=== PATIENT | male | born 1955 | race Caucasian/White ===

== ENCOUNTER 2018-03-28 06:15 | Day surgery (SDC) | payer OTHER ==
[2018-03-28] MEDS: SOD CHLORIDE 0.9% 1,000 ML IV (06:43)
[2018-03-28] MEDS ORDERED: LIDOCAINE 4% (MPF) 5 ML INJ (06:44)
[2018-03-28] MEDS: MOXIFLOXACIN 0.5% 3 ML OPH OPER (06:44)
[2018-03-28] MEDS: CYCLOPENTOLATE/PHENYLEPH 2 ML OPH OPER (06:44)
[2018-03-28] MEDS: DICLOFENAC 0.1% 2.5 ML OPH OPER (06:44)
[2018-03-28] MEDS: TROPICAMIDE 1% 15 ML OPH OPER (06:44)
[2018-03-28] MEDS ORDERED: GENTAMICIN 80 MG INJ (06:46)
[2018-03-28] MEDS ORDERED: CEFAZOLIN 1 GM INJ (06:46)
[2018-03-28] MEDS ORDERED: CARBACHOL 0.01% 1.5 ML OPH INJ (06:46)
[2018-03-28] MEDS ORDERED: TETRACAINE 0.5% 4 ML OPH (06:46)
[2018-03-28] MEDS ORDERED: EPINEPHrine 1 MG INJ (06:47)
[2018-03-28] MEDS ORDERED: DEXAMETHASONE 4 MG/ML 1 ML INJ (06:47)
[2018-03-28] MEDS ORDERED: BALANCED SALT SOLN 15 ML OPH IRRIG (07:00)
[2018-03-28] MEDS ORDERED: MITOMYCIN 5 MG INJ OP (07:00)
[2018-03-28] MEDS ORDERED: LIDOCAINE 2% (SDV) 5 ML INJ (07:00)
[2018-03-28] MEDS ORDERED: PROPOFOL 200 MG INJ (07:00)
[2018-03-28] MEDS ORDERED: MIDAZOLAM 1 MG/ML 2 ML INJ IV (07:30)
[2018-03-28] MEDS ORDERED: OXYCODONE/ACETAMINOPHEN (5/325) TAB PO ×2 (07:30)
[2018-03-28] MEDS ORDERED: TRIMETHOBENZAMIDE 100 MG/ML VIAL IM (07:30)
[2018-03-28] MEDS ORDERED: HYDROmorphONE 1 MG/5 ML IV SYRINGE IV ×3 (07:30)
[2018-03-28] MEDS ORDERED: IPRATROPIUM (NEB) 0.5 MG/2.5 ML AMP HHN (07:30)
[2018-03-28] MEDS ORDERED: FENTAnyl 50 MCG/ML VIAL IV ×3 (07:30)
[2018-03-28] MEDS ORDERED: ONDANSETRON 4 MG INJ IV (07:30)
[2018-03-28] MEDS ORDERED: DIPHENHYDRAMINE 50 MG INJ IV (07:30)
[2018-03-28] MEDS ORDERED: LABETALOL HCL 20MG INJ IV (07:30)
[2018-03-28] MEDS ORDERED: EPHEDrine SULFATE 50 MG/5 ML SYG IV (07:30)
[2018-03-28] MEDS ORDERED: ALBUTEROL 0.083% (NEB) 2.5 MG/3 ML AMP HHN (07:30)
[2018-03-28] MEDS ORDERED: hydrALAzine 20 MG INJ IV (07:30)
[2018-03-28] MEDS ORDERED: MEPERIDINE 25 MG INJ IV (07:30)
[2018-03-28] MEDS ORDERED: FENTAnyl 50 MCG/ML VIAL (07:36)
[2018-03-28] MEDS ORDERED: ONDANSETRON 4 MG INJ (07:36)
[2018-03-28] MEDS: LIDOCAINE 2%/EPI MPF (SDV) 20 ML VIAL INJ (07:46)
[2018-03-28] MEDS: BUPIVACAINE 0.5% (SDV) 30 ML INJ (07:47)
[2018-03-28] MEDS ORDERED: TOBRAMYCIN/DEXAMETH 3.5 GM OPH OINT (08:02)
== END 2018-03-28 09:35 | disposition home or self-care (01) ==
LOC: SDS 06:15
DX: H11.002 Unspecified pterygium of left eye (principal); I10 Essential (primary) hypertension
CPT/HCPCS: 65426